=== PATIENT | female | born 1990 | race Caucasian/White ===

== ENCOUNTER → 2017-08-28 11:24 | Outpatient (POV) | payer BC, SELFPAY ==
[2017-08-28 11:35] VITALS: BP 143/75; PULSE 91; RESP 18; TEMP 36.6; O2SAT 97; BMI 32.2
--- NOTE | 2017-08-28 12:33 | HMH.PAINSOAP ---
[facility] Pain Management SOAP Note Subjective:: Patient is a pleasant 27-year-old white female who presents today for follow-up. Patient had spinal cord stimulator implanted by Dr. Ramirez. She states that the majority of her back and bilateral leg pain has resolved. She is still having some left SI issues. Patient has had injections in the past with little relief. Patient is currently not on any medications. Patient has never tried gabapentin. Patient rates her pain a 6 out of 10 today. Patient is still working full-time. Patient states sitting makes it better while standing and moving makes it worse. ROS General: no recent weight change, no fever, no sleep disturbances Respiratory: no cough, no shortness of air, no recurring pulmonary infections Cardiovascular/Peripheral Vascular: No chest pain, No palpitations, no edema, no shortness of breath. Gastrointestinal: no incontinence, normal bowel movements reported Genitourinary: no incontinence Musculoskeletal: Left SI pain Psychiatric: normal mood/ affect, Neurological: [denies weakness in extremities], [denies balance issues] Objective:: Physical Exam General: Alert and oriented x3, no acute distress, pleasant and cooperative, [on room air] Lungs: Resps E/U, Symmetrical chest expansion, Eyes: PERRL Musculoskeletal: Flexion and extension of lumbar spine somewhat guarded secondary to pain, deep tendon reflexes normal, strength in upper and lower extremities [5/5], antalgic gait noted, positive Alex's test on the left side, extreme point tenderness over left SI Neurological: speech clear, wool shearer equal, no gross sensory deficits Assessment:: Left sacroiliitis, degenerative disc disease of lumbar spine with lumbar radiculopathy symptoms Plan:: We will call in this patient a Medrol Dosepak along with gabapentin 100 mg 1 p.o. 3 times daily. I will follow-up with this patient in 1 month. I discussed with her the possible side effects of the medication and she understands. Patient is going to titrate up her gabapentin slowly. I will see how she does on her return. This note was dictated using voice recognition software and may contain errors or omissions
--- NOTE | 2017-08-28 12:36 | P.CONS_ITS ---
[facility] Pain Management SOAP Note Subjective:: Patient is a pleasant 27-year-old white female who presents today for follow- up. Patient had spinal cord stimulator implanted by Dr. Ramirez. She states that the majority of her back and bilateral leg pain has resolved. She is still having some left SI issues. Patient has had injections in the past with little relief. Patient is currently not on any medications. Patient has never tried gabapentin. Patient rates her pain a 6 out of 10 today. Patient is still working full-time. Patient states sitting makes it better while standing and moving makes it worse. ROS General: no recent weight change, no fever, no sleep disturbances Respiratory: no cough, no shortness of air, no recurring pulmonary infections Cardiovascular/Peripheral Vascular: No chest pain, No palpitations, no edema, no shortness of breath. Gastrointestinal: no incontinence, normal bowel movements reported Genitourinary: no incontinence Musculoskeletal: Left SI pain Psychiatric: normal mood/ affect, Neurological: [denies weakness in extremities], [denies balance issues] Objective:: Physical Exam General: Alert and oriented x3, no acute distress, pleasant and cooperative, [ on room air] Lungs: Resps E/U, Symmetrical chest expansion, Eyes: PERRL Musculoskeletal: Flexion and extension of lumbar spine somewhat guarded secondary to pain, deep tendon reflexes normal, strength in upper and lower extremities [5/5], antalgic gait noted, positive Alex's test on the left side, extreme point tenderness over left SI Neurological: speech clear, veterans' coordinator equal, no gross sensory deficits Assessment:: Left sacroiliitis, degenerative disc disease of lumbar spine with lumbar radiculopathy symptoms Plan:: We will call in this patient a Medrol Dosepak along with gabapentin 100 mg 1 p.o. 3 times daily. I will follow-up with this patient in 1 month. I discussed with her the possible side effects of the medication and she understands. Patient is going to titrate up her gabapentin slowly. I will see how she does on her return. This note was dictated using voice recognition software and may contain errors or omissions
== END ==
PROVIDERS: Family Provider Family Medicine; PCP Family Medicine; Visit Provider Clinical Nurse Specialist Family Health
DX: M46.1 Sacroiliitis, not elsewhere classified (principal)
CPT/HCPCS: 99212

== ENCOUNTER → 2017-09-25 09:14 | Outpatient (POV) | payer BC, SELFPAY ==
[2017-09-25 09:39] VITALS: BP 128/89; PULSE 82; RESP 18; TEMP 36.7; O2SAT 99; BMI 30.4
--- NOTE | 2017-09-25 09:52 | HMH.PAINSOAP ---
[facility] Pain Management SOAP Note Subjective:: Patient is a pleasant 27-year-old white female who presents today for follow-up. Patient had spinal cord stimulator implanted by Dr. Ramirez. After surgery however the implant did migrate. Patient is not getting good coverage or pain relief. Patient's majority of her pain is in her back and bilateral legs. Patient is having SI issues bilaterally. Patient has had injections in the past with little relief. Patient is currently on gabapentin 100 mg at bedtime. She denies any side effects other than some drowsiness. Patient is still working full-time. Patient rates her pain as 7 out of 10 today. ROS General: no recent weight change, no fever, no sleep disturbances Respiratory: no cough, no shortness of air, no recurring pulmonary infections Cardiovascular/Peripheral Vascular: No chest pain, No palpitations, no edema, no shortness of breath. Gastrointestinal: no incontinence, normal bowel movements reported Genitourinary: no incontinence Musculoskeletal: Back pain, bilateral leg pain, bilateral SI joint pain Psychiatric: normal mood/ affect Neurological: [denies weakness in extremities], [denies balance issues] Objective:: Physical Exam General: Alert and oriented x3, no acute distress, pleasant and cooperative, [on room air] Lungs: Resps E/U, Symmetrical chest expansion, Eyes: PERRL Musculoskeletal: Flexion and extension of lumbar spine somewhat guarded secondary to pain, deep tendon reflexes normal, strength in upper and lower extremities [5/5], and gait noted, positive Alex's test bilaterally, extreme point tenderness over bilateral SI joints Neurological: speech clear, second hand paper machine equal, no gross sensory deficits Assessment:: Bilateral sacroiliitis, degenerative disc disease of lumbar spine with lumbar radiculopathy symptoms Plan:: We will plan a bilateral SI joint injection for the patient. We will call in ibuprofen 8 mg 1 p.o. 3 times daily. We will also get the patient's imaging from [facility] and referred the patient to Dr. Barlow for second opinion about a possible revision of her paddle lead. This note was dictated using voice recognition software and may contain errors or omissions
--- NOTE | 2017-09-25 09:55 | P.CONS_ITS ---
[facility] Pain Management SOAP Note Subjective:: Patient is a pleasant 27-year-old white female who presents today for follow- up. Patient had spinal cord stimulator implanted by Dr. Ramirez. After surgery however the implant did migrate. Patient is not getting good coverage or pain relief. Patient's majority of her pain is in her back and bilateral legs. Patient is having SI issues bilaterally. Patient has had injections in the past with little relief. Patient is currently on gabapentin 100 mg at bedtime. She denies any side effects other than some drowsiness. Patient is still working full-time. Patient rates her pain as 7 out of 10 today. ROS General: no recent weight change, no fever, no sleep disturbances Respiratory: no cough, no shortness of air, no recurring pulmonary infections Cardiovascular/Peripheral Vascular: No chest pain, No palpitations, no edema, no shortness of breath. Gastrointestinal: no incontinence, normal bowel movements reported Genitourinary: no incontinence Musculoskeletal: Back pain, bilateral leg pain, bilateral SI joint pain Psychiatric: normal mood/ affect Neurological: [denies weakness in extremities], [denies balance issues] Objective:: Physical Exam General: Alert and oriented x3, no acute distress, pleasant and cooperative, [ on room air] Lungs: Resps E/U, Symmetrical chest expansion, Eyes: PERRL Musculoskeletal: Flexion and extension of lumbar spine somewhat guarded secondary to pain, deep tendon reflexes normal, strength in upper and lower extremities [5/5], and gait noted, positive Alex's test bilaterally, extreme point tenderness over bilateral SI joints Neurological: speech clear, pediatric rn equal, no gross sensory deficits Assessment:: Bilateral sacroiliitis, degenerative disc disease of lumbar spine with lumbar radiculopathy symptoms Plan:: We will plan a bilateral SI joint injection for the patient. We will call in ibuprofen 8 mg 1 p.o. 3 times daily. We will also get the patient's imaging from [facility] and referred the patient to Dr. Barlow for second opinion about a possible revision of her paddle lead. This note was dictated using voice recognition software and may contain errors or omissions
--- NOTE | 2017-09-25 14:07 | PC.PHONENOTE ---
called in rx for Motrin 800mg TID with 2 refills
== END ==
PROVIDERS: Family Provider Family Medicine; PCP Family Medicine; Visit Provider Clinical Nurse Specialist Family Health
DX: M46.1 Sacroiliitis, not elsewhere classified (principal); M54.16 Radiculopathy, lumbar region
CPT/HCPCS: 99212

== ENCOUNTER → 2018-02-04 09:59 | Outpatient (POV) | payer BC, SELFPAY ==
[2018-02-04 10:10] VITALS: BP 134/76; PULSE 72; RESP 18; O2SAT 100; BMI 33.1
--- NOTE | 2018-02-04 11:01 | HMH.PAINSOAP ---
[facility] Pain Management SOAP Note Subjective:: Patient is a pleasant 27-year-old white female who we are treating for back and leg pain. Patient had a revision of her spinal cord stimulator and is doing extremely well with this. Patient states she is having some low back pain. Patient does have a disc bulge at L4-L5. We will try lumbar epidural steroid injection to see if this is beneficial for her. She rates her pain today a 6 out of 10. ROS General: no recent weight change, no fever, no sleep disturbances Respiratory: no cough, no shortness of air, no recurring pulmonary infections Cardiovascular/Peripheral Vascular: No chest pain, No palpitations, no edema, no shortness of breath. Gastrointestinal: no incontinence, normal bowel movements reported Genitourinary: no incontinence Musculoskeletal: Back pain Psychiatric: normal mood/ affect Neurological: [denies weakness in extremities], [denies balance issues] Objective:: Physical Exam General: Alert and oriented x3, no acute distress, pleasant and cooperative, [on room air] Lungs: Resps E/U, Symmetrical chest expansion, Eyes: PERRL Musculoskeletal: Flexion and extension of lumbar spine somewhat guarded secondary to pain, deep tendon reflexes normal, strength in upper and lower extremities [5/5], slightly antalgic gait noted Neurological: speech clear, managed care provider equal, no gross sensory deficits Assessment:: Degenerative disc disease of lumbar spine with lumbar radiculopathy Plan:: We will schedule an L4-L5 lumbar epidural steroid injection for the patient. She is not on any anticoagulation therapy. If this does not bring her any relief we will get a CT scan of her lower back and send her for consultation to Dr. Barlow. This note was dictated using voice recognition software and may contain errors or omissions
--- NOTE | 2018-02-04 11:04 | P.CONS_ITS ---
[facility] Pain Management SOAP Note Subjective:: Patient is a pleasant 27-year-old white female who we are treating for back and leg pain. Patient had a revision of her spinal cord stimulator and is doing extremely well with this. Patient states she is having some low back pain. Patient does have a disc bulge at L4-L5. We will try lumbar epidural steroid injection to see if this is beneficial for her. She rates her pain today a 6 out of 10. ROS General: no recent weight change, no fever, no sleep disturbances Respiratory: no cough, no shortness of air, no recurring pulmonary infections Cardiovascular/Peripheral Vascular: No chest pain, No palpitations, no edema, no shortness of breath. Gastrointestinal: no incontinence, normal bowel movements reported Genitourinary: no incontinence Musculoskeletal: Back pain Psychiatric: normal mood/ affect Neurological: [denies weakness in extremities], [denies balance issues] Objective:: Physical Exam General: Alert and oriented x3, no acute distress, pleasant and cooperative, [on room air] Lungs: Resps E/U, Symmetrical chest expansion, Eyes: PERRL Musculoskeletal: Flexion and extension of lumbar spine somewhat guarded secondary to pain, deep tendon reflexes normal, strength in upper and lower extremities [5/5], slightly antalgic gait noted Neurological: speech clear, sprayer hand equal, no gross sensory deficits Assessment:: Degenerative disc disease of lumbar spine with lumbar radiculopathy Plan:: We will schedule an L4-L5 lumbar epidural steroid injection for the patient. She is not on any anticoagulation therapy. If this does not bring her any relief we will get a CT scan of her lower back and send her for consultation to Dr. Barlow. This note was dictated using voice recognition software and may contain errors or omissions
== END ==
PROVIDERS: Family Provider Family Medicine; PCP Family Medicine; Visit Provider Clinical Nurse Specialist Family Health
DX: M51.16 Intervertebral disc disorders with radiculopathy, lumbar region (principal)
CPT/HCPCS: 99213

== ENCOUNTER → 2018-03-19 09:12 | Outpatient (POV) | payer BC, SELFPAY ==
[2018-03-19 09:27] VITALS: BP 158/82; PULSE 74; RESP 18; O2SAT 98; BMI 31.8
--- NOTE | 2018-03-19 12:29 | P.CONS_ITS ---
[facility] Pain Management SOAP Note Subjective:: Patient is a pleasant 27-year-old white female who presents today after lumbar epidural steroid injection. Patient denies any relief from her injection. Patient states most of her pain is when she standing and walking. Patient states she is noted that she cannot walk for long periods of time without bending forward. Patient does have a neurostimulator which takes care of most of her back and leg pain however she is having much more difficulty with walking around. Patient rates her pain a 5 out of 10 today. Patient has not had any updated imaging recently. ROS General: no recent weight change, no fever, no sleep disturbances Respiratory: no cough, no shortness of air, no recurring pulmonary infections Cardiovascular/Peripheral Vascular: No chest pain, No palpitations, no edema, no shortness of breath. Gastrointestinal: no incontinence, normal bowel movements reported Genitourinary: no incontinence Musculoskeletal: Back pain when walking Psychiatric: normal mood/ affect Neurological: [denies weakness in extremities], [denies balance issues] Objective:: Physical Exam General: Alert and oriented x3, no acute distress, pleasant and cooperative, [on room air] Lungs: Resps E/U, Symmetrical chest expansion, Eyes: PERRL Musculoskeletal: Flexion and extension of lumbar spine somewhat guarded secondary to pain, deep tendon reflexes normal, strength in upper and lower extremities [5/5], slightly antalgic gait noted Neurological: speech clear, product inspection coordinator equal, no gross sensory deficits Assessment:: Degenerative disc disease of the lumbar spine with lumbar radiculopathy Plan:: We will send the patient for a CT scan to determine if she has spinal stenosis. Patient may be a vertiflex candidate. I will follow-up with her after her imaging. This note was dictated using voice recognition software and may contain errors or omissions
== END ==
PROVIDERS: PCP Family Medicine; Visit Provider Clinical Nurse Specialist Family Health
DX: M51.16 Intervertebral disc disorders with radiculopathy, lumbar region (principal)
CPT/HCPCS: 99213

== ENCOUNTER → 2018-04-15 15:02 | Outpatient (POV) | payer BC, SELFPAY ==
--- NOTE | 2018-04-15 15:25 | HMH.PAINSOAP ---
[facility] Pain Management SOAP Note Subjective:: Is a 27-year-old white female who presents today for follow-up. Patient had a CT that shows articular facet disease. Patient rates her pain a 7 out of 10 today. Patient states that her pain is when she stands for long periods of time. Patient states that she has to bend forward when she is walking. Patient does have a neurostimulator which takes care of most of her back pain however she is having much more difficulty with walking around. Patient may be a potential refer to flex procedure candidate. Patient has tried and failed facet joint injections, epidural injections, SI joint injections, neurostimulator reprogramming. ROS General: no recent weight change, no fever, no sleep disturbances Respiratory: no cough, no shortness of air, no recurring pulmonary infections Cardiovascular/Peripheral Vascular: No chest pain, No palpitations, no edema, no shortness of breath. Gastrointestinal: no incontinence, normal bowel movements reported Genitourinary: no incontinence Musculoskeletal: Back pain when walking Psychiatric: normal mood/ affect Neurological: [denies weakness in extremities], [denies balance issues] Objective:: Physical Exam General: Alert and oriented x3, no acute distress, pleasant and cooperative, [on room air] Lungs: Resps E/U, Symmetrical chest expansion, Eyes: PERRL Musculoskeletal: Flexion and extension of lumbar spine somewhat guarded secondary to pain, deep tendon reflexes normal, strength in upper and lower extremities [5/5], normal gait noted Neurological: speech clear, scale and skip car operator equal, no gross sensory deficits Assessment:: Degenerative disc disease lumbar spine with lumbar spondylosis, lumbar radiculopathy Plan:: I will have Dr. Liu review her disc of her CT to determine if she is a candidate for vertical flex. Patient has tried and failed other modalities of treatment including epidurals, facet joint injections, SI joint injections. We will started on Wellbutrin 150 mg daily. I will follow-up with her in 1 month. This note was dictated using voice recognition software and may contain errors or omissions
[2018-04-15 15:27] VITALS: BP 109/75; PULSE 76; RESP 18; O2SAT 98; BMI 36.3
--- NOTE | 2018-04-15 15:30 | P.CONS_ITS ---
[facility] Pain Management SOAP Note Subjective:: Is a 27-year-old white female who presents today for follow-up. Patient had a CT that shows articular facet disease. Patient rates her pain a 7 out of 10 today. Patient states that her pain is when she stands for long periods of time. Patient states that she has to bend forward when she is walking. Patient does have a neurostimulator which takes care of most of her back pain however she is having much more difficulty with walking around. Patient may be a potential refer to flex procedure candidate. Patient has tried and failed facet joint injections, epidural injections, SI joint injections, neurostimulator reprogramming. ROS General: no recent weight change, no fever, no sleep disturbances Respiratory: no cough, no shortness of air, no recurring pulmonary infections Cardiovascular/Peripheral Vascular: No chest pain, No palpitations, no edema, no shortness of breath. Gastrointestinal: no incontinence, normal bowel movements reported Genitourinary: no incontinence Musculoskeletal: Back pain when walking Psychiatric: normal mood/ affect Neurological: [denies weakness in extremities], [denies balance issues] Objective:: Physical Exam General: Alert and oriented x3, no acute distress, pleasant and cooperative, [on room air] Lungs: Resps E/U, Symmetrical chest expansion, Eyes: PERRL Musculoskeletal: Flexion and extension of lumbar spine somewhat guarded secondary to pain, deep tendon reflexes normal, strength in upper and lower extr emities [5/5], normal gait noted Neurological: speech clear, insurance business analyst equal, no gross sensory deficits Assessment:: Degenerative disc disease lumbar spine with lumbar spondylosis, lumbar radiculopathy Plan:: I will have Dr. Liu review her disc of her CT to determine if she is a candidate for vertical flex. Patient has tried and failed other modalities of treatment including epidurals, facet joint injections, SI joint injections. We will started on Wellbutrin 150 mg daily. I will follow-up with her in 1 month. This note was dictated using voice recognition software and may contain errors or omissions
== END ==
PROVIDERS: PCP Family Medicine; Visit Provider Clinical Nurse Specialist Family Health
DX: M51.16 Intervertebral disc disorders with radiculopathy, lumbar region (principal); M47.896 Other spondylosis, lumbar region
CPT/HCPCS: 99213

== ENCOUNTER → 2018-05-07 10:53 | Outpatient (POV) | payer BC, SELFPAY ==
--- NOTE | 2018-05-07 11:03 | XR_ITS ---
XR lumbar spine bending only Ordering Physician: Nicolle Jean Patient Age: 27 years: Female HISTORY: ITS.REASON: F/U WITH PAIN MANAGEMENT TECHNIQUE: 2 lateral views : in flexion and extension COMPARISON :CT lumbar 04/09/2018. FINDINGS Lateral flexion and extension views lumbar spine demonstrate mild to moderate movement between flexion & extension. .. Mild flexion observed on this single lateral flexion image, with mild range of movement with extension... A previous CT lumbar spine sagittal safety supervisor view series is neutral comparison The spinal stimulator device overlying the lower back with lead extending stability on image IMPRESSION: . Lumbar Vertebral bodies appear intact... Disc spaces fairly well maintained. There mild to moderate flexion-extension mobility demonstrated. ... Does appear to be Diminished range of motion lumbar spine for 27-year-old
[2018-05-07 11:36] VITALS: BP 146/78; PULSE 82; RESP 18; O2SAT 98; BMI 33.6
--- NOTE | 2018-05-07 12:11 | HMH.PAINSOAP ---
[facility] Pain Management SOAP Note Subjective:: Patient is a pleasant 27-year-old white female who presents today for discussion in regards to a vertiflex procedure. Patient stimulator has been taking care of her leg pain however her biggest issue is when she is standing and walking. Patient's pain is relieved when she leans forward. Patient has tried and failed medications and anti-inflammatories. I did start her on Wellbutrin 150 mg/day and she states that this does help her rest at night. She rates her pain 6 out of 10. She has completed physical therapy and is continuing a home stretching program. Patient's tried and failed anti-inflammatory medications. ROS General: no recent weight change, no fever, no sleep disturbances Respiratory: no cough, no shortness of air, no recurring pulmonary infections Cardiovascular/Peripheral Vascular: No chest pain, No palpitations, no edema, no shortness of breath. Gastrointestinal: no incontinence, normal bowel movements reported Genitourinary: no incontinence Musculoskeletal: Back pain, leg pain when standing Psychiatric: normal mood/ affect Neurological: [denies weakness in extremities], [denies balance issues] Objective:: Physical Exam General: Alert and oriented x3, no acute distress, pleasant and cooperative, [on room air] Lungs: Resps E/U, Symmetrical chest expansion, Eyes: PERRL Musculoskeletal: Flexion and extension of lumbar spine somewhat guarded secondary to pain, deep tendon reflexes normal, strength in upper and lower extremities [5/5], slightly antalgic gait noted Neurological: speech clear, concrete foreman equal, no gross sensory deficits Assessment:: Spinal stenosis, neurogenic claudication, degenerative disc disease lumbar spine Plan:: We will move forward with a vertiflex procedure at L3-L4. We will secure flexion and extension x-rays to ensure this can be done. I believe given her age this will be much more beneficial than a surgical procedure. I believe it will help with her functionality. This note was dictated using voice recognition software and may contain errors or omissions
--- NOTE | 2018-05-07 12:15 | P.CONS_ITS ---
[facility] Pain Management SOAP Note Subjective:: Patient is a pleasant 27-year-old white female who presents today for discussion in regards to a vertiflex procedure. Patient stimulator has been taking care of her leg pain however her biggest issue is when she is standing and walking. Patient's pain is relieved when she leans forward. Patient has tried and failed medications and anti-inflammatories. I did start her on Wellbutrin 150 mg/day and she states that this does help her rest at night. She rates her pain 6 out of 10. She has completed physical therapy and is continuing a home stretching program. Patient's tried and failed anti-inflammatory medications. ROS General: no recent weight change, no fever, no sleep disturbances Respiratory: no cough, no shortness of air, no recurring pulmonary infections Cardiovascular/Peripheral Vascular: No chest pain, No palpitations, no edema, no shortness of breath. Gastrointestinal: no incontinence, normal bowel movements reported Genitourinary: no incontinence Musculoskeletal: Back pain, leg pain when standing Psychiatric: normal mood/ affect Neurological: [denies weakness in extremities], [denies balance issues] Objective:: Physical Exam General: Alert and oriented x3, no acute distress, pleasant and cooperative, [on room air] Lungs: Resps E/U, Symmetrical chest expansion, Eyes: PERRL Musculoskeletal: Flexion and extension of lumbar spine somewhat guarded secondary to pain, deep tendon reflexes normal, strength in upper and lower extr emities [5/5], slightly antalgic gait noted Neurological: speech clear, title supervisor equal, no gross sensory deficits Assessment:: Spinal stenosis, neurogenic claudication, degenerative disc disease lumbar spine Plan:: We will move forward with a vertiflex procedure at L3-L4. We will secure flexion and extension x-rays to ensure this can be done. I believe given her age this will be much more beneficial than a surgical procedure. I believe it will help with her functionality. This note was dictated using voice recognition software and may contain errors or omissions
== END ==
PROVIDERS: PCP Family Medicine; Visit Provider Clinical Nurse Specialist Family Health
DX: M48.062 Spinal stenosis, lumbar region with neurogenic claudication (principal); M51.36 Other intervertebral disc degeneration, lumbar region
CPT/HCPCS: 72120; 99213

== ENCOUNTER → 2018-07-16 09:27 | Outpatient (POV) | payer BC, SELFPAY ==
[2018-07-16 10:06] VITALS: BP 144/92; PULSE 79; RESP 18; O2SAT 98; BMI 31.8
--- NOTE | 2018-07-16 10:21 | HMH.PAINSOAP ---
[facility] Pain Management SOAP Note Subjective:: Patient is a pleasant was 28-year-old white female who presents today for follow-up after vertiflex. Patient is slightly sore at the surgical site. Patient has had stitches removed. Patient site looks clean dry and he will no sign symptoms of infection. Patient is having some swelling. And increased pain We will put her on some anti-inflammatories and follow-up with her in 1 week. Rates her pain a 6 out of 10 ROS General: no recent weight change, no fever, no sleep disturbances Respiratory: no cough, no shortness of air, no recurring pulmonary infections Cardiovascular/Peripheral Vascular: No chest pain, No palpitations, no edema, no shortness of breath. Gastrointestinal: no incontinence, normal bowel movements reported Genitourinary: no incontinence Musculoskeletal: Back pain Psychiatric: normal mood/ affect Neurological: [denies weakness in extremities], [denies balance issues] Objective:: Physical Exam General: Alert and oriented x3, no acute distress, pleasant and cooperative, [on room air] Lungs: Resps E/U, Symmetrical chest expansion, Eyes: PERRL Musculoskeletal: Flexion and extension of lumbar spine somewhat guarded secondary to pain, deep tendon reflexes normal, strength in upper and lower extremities [5/5], [abnormal gait noted] Neurological: speech clear, cage maker machine equal, no gross sensory deficits Assessment:: Degenerative disc disease lumbar spine with neurogenic claudication and spinal stenosis Plan:: See the patient back in 1 week and reassess her symptoms at that time. She has been instructed to call the office if she has any prior to her next appointment. Dr. Liu has reviewed this note and agrees with this plan of care. This note was dictated using voice recognition software and may contain errors or omissions
--- NOTE | 2018-07-16 10:24 | P.CONS_ITS ---
[facility] Pain Management SOAP Note Subjective:: Patient is a pleasant was 28-year-old white female who presents today for follow-up after vertiflex. Patient is slightly sore at the surgical site. Patient has had stitches removed. Patient site looks clean dry and he will no sign symptoms of infection. Patient is having some swelling. And increased pain We will put her on some anti-inflammatories and follow-up with her in 1 week. Rates her pain a 6 out of 10 ROS General: no recent weight change, no fever, no sleep disturbances Respiratory: no cough, no shortness of air, no recurring pulmonary infections Cardiovascular/Peripheral Vascular: No chest pain, No palpitations, no edema, no shortness of breath. Gastrointestinal: no incontinence, normal bowel movements reported Genitourinary: no incontinence Musculoskeletal: Back pain Psychiatric: normal mood/ affect Neurological: [denies weakness in extremities], [denies balance issues] Objective:: Physical Exam General: Alert and oriented x3, no acute distress, pleasant and cooperative, [on room air] Lungs: Resps E/U, Symmetrical chest expansion, Eyes: PERRL Musculoskeletal: Flexion and extension of lumbar spine somewhat guarded secondary to pain, deep tendon reflexes normal, strength in upper and lower extremities [5/5], [abnormal gait noted] Neurological: speech clear, electrode cleaner equal, no gross sensory deficits Assessment:: Degenerative disc disease lumbar spine with neurogenic claudication and spinal stenosis Plan:: See the patient back in 1 week and reassess her symptoms at that time. She has been instructed to call the office if she has any prior to her next appointment. Dr. Liu has reviewed this note and agrees with this plan of care. This note was dictated using voice recognition software and may contain errors or omissions
== END ==
PROVIDERS: PCP Family Medicine; Visit Provider Clinical Nurse Specialist Family Health
DX: M48.062 Spinal stenosis, lumbar region with neurogenic claudication (principal)
CPT/HCPCS: 99213

== ENCOUNTER → 2018-07-22 09:24 | Outpatient (POV) | payer BC, SELFPAY ==
[2018-07-22 09:44] VITALS: BP 133/98; PULSE 81; RESP 18; O2SAT 98; BMI 31.8
--- NOTE | 2018-07-22 09:55 | P.CONS_ITS ---
[facility] Pain Management SOAP Note Subjective:: She is a pleasant 28-year-old white female who presents today for follow-up. Patient is doing fairly well rating her pain a 4 out of 10. Patient site has healed completely with no sign symptoms of infection. Patient overall doing well she states that she can stand up straighter at this time. She states that she does have some weakness in her bilateral legs. ROS General: no recent weight change, no fever, no sleep disturbances Respiratory: no cough, no shortness of air, no recurring pulmonary infections Cardiovascular/Peripheral Vascular: No chest pain, No palpitations, no edema, no shortness of breath. Gastrointestinal: no incontinence, normal bowel movements reported Genitourinary: no incontinence Musculoskeletal: Back pain, leg pain Psychiatric: normal mood/ affect Neurological: Bilateral lower extremity weakness, [denies balance issues] Objective:: Physical Exam General: Alert and oriented x3, no acute distress, pleasant and cooperative, [on room air] Lungs: Resps E/U, Symmetrical chest expansion, Eyes: PERRL Musculoskeletal: Flexion and extension of lumbar spine somewhat guarded secondary to pain, deep tendon reflexes normal, strength in upper and lower extremities [5/5], antalgic gait noted Neurological: speech clear, special loan officer equal, no gross sensory deficits Assessment:: Degenerative disc disease lumbar spine with neurogenic claudication and spinal stenosis Plan:: We will send the patient to physical therapy to help with strengthening of her lower extremities. I will follow-up with her after this and reassess her symptoms at that time. She is been instructed to call the office if she has any issues prior to her next appointment. Dr. Liu has reviewed this note and agrees with this plan of care. This note was dictated using voice recognition software and may contain errors or omissions
== END ==
PROVIDERS: PCP Family Medicine; Visit Provider Clinical Nurse Specialist Family Health
DX: M48.062 Spinal stenosis, lumbar region with neurogenic claudication (principal)
CPT/HCPCS: 99213

== ENCOUNTER → 2018-09-10 13:24 | Outpatient (POV) | payer BC, SELFPAY ==
[2018-09-10 13:55] VITALS: BP 131/74; PULSE 83; RESP 18; O2SAT 98; BMI 32.0
--- NOTE | 2018-09-10 15:58 | P.CONS_ITS ---
[facility] Pain Management SOAP Note Subjective:: Patient is a very pleasant 28-year-old white female who presents today for follow-up. She is doing well rating her pain a 4 out of 10. She is completing her physical therapy and doing quite well with this as well. She does have a neurostimulator along with a vertiflex. Patient states she is having some weakness in her bilateral legs. She states the numbness in her legs are gone. ROS General: no recent weight change, no fever, no sleep disturbances Respiratory: no cough, no shortness of air, no recurring pulmonary infections Cardiovascular/Peripheral Vascular: No chest pain, No palpitations, no edema, no shortness of breath. Gastrointestinal: no incontinence, normal bowel movements reported Genitourinary: no incontinence Musculoskeletal: Back pain, leg pain Psychiatric: normal mood/ affect Neurological: Weakness in bilateral lower extremities at times, [denies balance issues] Objective:: Physical Exam General: Alert and oriented x3, no acute distress, pleasant and cooperative, [on room air] Lungs: Resps E/U, Symmetrical chest expansion, Eyes: PERRL Musculoskeletal: Flexion and extension of lumbar spine somewhat guarded secondary to pain, deep tendon reflexes normal, strength in upper and lower extremities [5/5], [abnormal gait noted] Neurological: speech clear, director of infection prevention equal, no gross sensory deficits Assessment:: Degenerative disc disease lumbar spine with neurogenic claudication and spinal stenosis Plan:: I believe it would be beneficial to continue physical therapy for the patient also to get a nerve conduction study of her bilateral lower legs for further assessment of her weakness. Dr. Liu has reviewed this note and agrees with this plan of care. This note was dictated using voice recognition software and may contain errors or omissions
== END ==
PROVIDERS: PCP Family Medicine; Visit Provider Clinical Nurse Specialist Family Health
DX: M48.062 Spinal stenosis, lumbar region with neurogenic claudication (principal)
CPT/HCPCS: 99212

== ENCOUNTER → 2018-09-30 13:22 | Outpatient (POV) | payer BC, SELFPAY | PROVIDERS: Visit Provider Specialist | DX: M79.604 Pain in right leg (principal); M79.605 Pain in left leg | CPT/HCPCS: 95886; 95908 ==

== ENCOUNTER → 2018-11-04 10:53 | Outpatient (POV) | payer BC, SELFPAY ==
[2018-11-04 11:17] VITALS: BP 143/99; PULSE 99; RESP 18; O2SAT 98; BMI 31.4
--- NOTE | 2018-11-05 08:26 | HMH.PAINSOAP ---
[facility] Pain Management SOAP Note Subjective:: Patient is a pleasant 28-year-old white female who presents today for follow-up. Patient has avert a flex along with a neurostimulator. She rates her pain a 5 out of 10 today. Patient overall doing well but she has had some recent changes in her numbness and tingling. She is concerned about this. She is continuing physical therapy and a home stretching program. This is not been beneficial for her. Most of her pain is in her bilateral legs at this time. Patient and I discussed reprogramming and getting some new imaging. ROS General: no recent weight change, no fever, no sleep disturbances Respiratory: no cough, no shortness of air, no recurring pulmonary infections Cardiovascular/Peripheral Vascular: No chest pain, No palpitations, no edema, no shortness of breath. Gastrointestinal: no incontinence, normal bowel movements reported Genitourinary: no incontinence Musculoskeletal: Back pain, leg pain Psychiatric: normal mood/ affect, Neurological: [denies weakness in extremities], [denies balance issues] Objective:: Physical Exam General: Alert and oriented x3, no acute distress, pleasant and cooperative, [on room air] Lungs: Resps E/U, Symmetrical chest expansion, Eyes: PERRL Musculoskeletal: Flexion and extension of lumbar spine somewhat guarded secondary to pain, deep tendon reflexes normal, strength in upper and lower extremities [5/5], antalgic gait noted Neurological: speech clear, application support lead equal, no gross sensory deficits Assessment:: Degenerative disc disease lumbar spine with lumbar radiculopathy along with spinal stenosis neurogenic claudication Plan:: We will order a CT for the patient. To determine any new pathology. Patient is going to contact her office after her CT is completed we will review it and see if she is potentially a surgical candidate or needs a surgical consultation. Dr. Liu has reviewed this note and agrees with this plan of care. This note was dictated using voice recognition software and may contain errors or omissions
== END ==
PROVIDERS: Visit Provider Clinical Nurse Specialist Family Health
DX: M48.062 Spinal stenosis, lumbar region with neurogenic claudication (principal)
CPT/HCPCS: 99212

== ENCOUNTER → 2018-11-25 09:35 | Outpatient (POV) | payer BC, SELFPAY ==
[2018-11-25 10:03] VITALS: BP 140/89; PULSE 74; RESP 18; O2SAT 98; BMI 32.0
--- NOTE | 2018-11-25 10:59 | P.CONS_ITS ---
[facility] Pain Management SOAP Note Subjective:: Patient is a pleasant 28-year-old white female who presents today for follow-up. Patient is still having quite a bit of pain rating her pain a 7 out of 10 radiating into her back moving up her spine and down her spine. Patient had a CT scan that was essentially unremarkable. Patient and I had a long discussion in regards to her current state of health. She is having a lot of issues with her stomach along with swelling. Patient is obviously swollen on exam today. Patient has not seen her primary care recently. Patient is continuing physical therapy and a home stretching program. But it is not as beneficial as it had been. Most of her pain is in her legs. ROS General: Recent weight change, no fever, difficulty sleeping difficulty eating Respiratory: no cough, shortness of air on exertion, no recurring pulmonary infections Cardiovascular/Peripheral Vascular: No chest pain, No palpitations,edema bilateral legs, Gastrointestinal: no incontinence Genitourinary: no incontinence Musculoskeletal: Back pain, leg pain Psychiatric: normal mood/ affect, [denies depression], [denies anxiety] Neurological: [denies weakness in extremities], [denies balance issues] Objective:: Physical Exam General: Alert and oriented x3, no acute distress, pleasant and cooperative, [on room air] Lungs: Resps E/U, Symmetrical chest expansion, Eyes: PERRL Skin: 2+ edema bilateral legs Musculoskeletal: Flexion and extension of her spine somewhat guarded secondary to pain, deep tendon reflexes normal, strength in upper and lower extremities [5/5], [abnormal gait noted] Neurological: speech clear, clerical administrative assistant equal, no gross sensory deficits Assessment:: Degenerative disc disease lumbar spine with lumbar radiculopathy spinal stenosis neurogenic claudication Plan:: We will have her go to be seen by her family care doctor to discuss potential HIDA scan, sed rate, blood work, and any vascular test that may be appropriate. We will also set her up for biofeedback therapy with Dr. Webb. I will see her back in 1 week and reassess her symptoms at that time she is been instructed to call the office if she has any issues prior to her next appointment. Dr. Liu has reviewed this note and agrees with this plan of care. This note was dictated using voice recognition software and may contain errors or omissions
== END ==
PROVIDERS: Visit Provider Clinical Nurse Specialist Family Health
DX: M48.062 Spinal stenosis, lumbar region with neurogenic claudication (principal); M51.16 Intervertebral disc disorders with radiculopathy, lumbar region
CPT/HCPCS: 99212

== ENCOUNTER → 2018-12-02 09:00 | Outpatient (POV) | payer BC, SELFPAY ==
[2018-12-02 09:13] VITALS: BP 134/79; PULSE 68; RESP 18; O2SAT 98; BMI 33.3
--- NOTE | 2018-12-02 09:28 | HMH.PAINSOAP ---
[facility] Pain Management SOAP Note Subjective:: Patient is a pleasant 28-year-old white female who presents today for follow-up. Patient is having mid epigastric pain radiating to her right flank area. She says she has been having this pain for a couple of months. She also had some swelling to her abdomen and lower extremities. At last visit she was encouraged to follow-up with her primary care physician to discuss possible testing. Patient says that she did, indeed, follow-up with her primary care provider who did do testing that revealed elevated enzymes , according to the patient. Patient is still having midepigastric pain and says that it worsens with eating. Per patient, her PCP told her it is heartburn, take the medicine and deal with it . She says that the midepigastric pain is now causing her to have upper back pain. She would like to determine what is causing her midepigastric pain before addressing her back pain. Review of Systems General: No recent weight changes, no fever, no sleep disturbances Respiratory: No cough, no shortness of air, no recurring pulmonary infections Cardiovascular/peripheral vascular: No chest pain, no palpitations, no edema, no shortness of breath Gastrointestinal: No new onset incontinence, normal bowel movements reported Genitourinary: No new onset incontinence Musculoskeletal: Back pain Psychiatric: Normal mood/affect Neurological: [Denies weakness in extremities], [denies balance issues] Objective:: Physical exam General: Alert and oriented x3, no acute distress, pleasant and cooperative, [on room air] Lungs: Respirations even and unlabored, symmetrical chest expansion Eyes: PERRL Musculoskeletal: Flexion and extension of cervical spine somewhat guarded secondary to pain, deep tendon reflexes normal, strength in upper and lower extremities [5/5], normal gait noted Neurological: Speech clear, business intelligence analyst equal, no gross sensory deficit Assessment:: Degenerative disc disease lumbar spine with lumbar radiculopathy, spinal stenosis, neurogenic claudication Plan:: We will refer the patient to gastroenterology. She lives in [place] and would like to see someone there. She has been advised to hold any anti-inflammatories at this time secondary to report of elevated enzymes. The patient will continue a home stretching program. She would like to determine what is going on with her abdomen and see if this is contributing to her back pain. The patient will see GI and follow-up with us in 1 month. She is been advised to call the office if she has any concerns prior to her next appointment. Dr. Liu has reviewed this note and agrees with this plan of care. This note was dictated using voice recognition software and make contain errors or omissions.
--- NOTE | 2018-12-02 09:33 | P.CONS_ITS ---
[facility] Pain Management SOAP Note Subjective:: Patient is a pleasant 28-year-old white female who presents today for follow-up. Patient is having mid epigastric pain radiating to her right flank area. She says she has been having this pain for a couple of months. She also had some swelling to her abdomen and lower extremities. At last visit she was encouraged to follow-up with her primary care physician to discuss possible testing. Patient says that she did, indeed, follow-up with her primary care provider who did do testing that revealed elevated enzymes , according to the patient. Patient is still having midepigastric pain and says that it worsens with eating. Per patient, her PCP told her it is heartburn, take the medicine and deal with it . She says that the midepigastric pain is now causing her to have upper back pain. She would like to determine what is causing her midepigastric pain before addressing her back pain. Review of Systems General: No recent weight changes, no fever, no sleep disturbances Respiratory: No cough, no shortness of air, no recurring pulmonary infections Cardiovascular/peripheral vascular: No chest pain, no palpitations, no edema, no shortness of breath Gastrointestinal: No new onset incontinence, normal bowel movements reported Genitourinary: No new onset incontinence Musculoskeletal: Back pain Psychiatric: Normal mood/affect Neurological: [Denies weakness in extremities], [denies balance issues] Objective:: Physical exam General: Alert and oriented x3, no acute distress, pleasant and cooperative, [on room air] Lungs: Respirations even and unlabored, symmetrical chest expansion Eyes: PERRL Musculoskeletal: Flexion and extension of cervical spine somewhat guarded secondary to pain, deep tendon reflexes normal, strength in upper and lower extremities [5/5], normal gait noted Neurological: Speech clear, headstart teacher equal, no gross sensory deficit Assessment:: Degenerative disc disease lumbar spine with lumbar radiculopathy, spinal stenosis, neurogenic claudication Plan:: We will refer the patient to gastroenterology. She lives in [place] and would like to see someone there. She has been advised to hold any anti- inflammatories at this time secondary to report of elevated enzymes. The patient will continue a home stretching program. She would like to determine what is going on with her abdomen and see if this is contributing to her back pain. The patient will see GI and follow-up with us in 1 month. She is been advised to call the office if she has any concerns prior to her next appointment. Dr. Liu has reviewed this note and agrees with this plan of care. This note was dictated using voice recognition software and make contain errors or omissions.
== END ==
PROVIDERS: Visit Provider Clinical Nurse Specialist Family Health
DX: M51.16 Intervertebral disc disorders with radiculopathy, lumbar region (principal); M48.062 Spinal stenosis, lumbar region with neurogenic claudication
CPT/HCPCS: 99212

== ENCOUNTER → 2018-12-31 11:40 | Outpatient (POV) | payer BC, SELFPAY ==
--- NOTE | 2018-12-31 12:32 | P.CONS_ITS ---
[facility] Pain Management SOAP Note Subjective:: Patient is a very pleasant 28-year-old white female who presents today for follow-up. Patient was seen by gastroenterology and it was determined that she had gastritis. Patient states most of her pain today is over her left SI joint. She has avert a flex in place and she also has a neurostimulator. I believe it would be beneficial to do an SI joint injection to see if this is her main issue. Patient might need some kind of stability device placed in that area. She rates her pain today a 6 out of 10. ROS General: no recent weight change, no fever, no sleep disturbances Respiratory: no cough, no shortness of air, no recurring pulmonary infections Cardiovascular/Peripheral Vascular: No chest pain, No palpitations, no edema, no shortness of breath. Gastrointestinal: no incontinence, normal bowel movements reported Genitourinary: no incontinence Musculoskeletal: Left SI joint pain Psychiatric: normal mood/ affect Neurological: [denies weakness in extremities], [denies balance issues] Objective:: Physical Exam General: Alert and oriented x3, no acute distress, pleasant and cooperative, Lungs: Resps E/U, Symmetrical chest expansion, Eyes: PERRL Musculoskeletal: Flexion and extension of lumbar spine somewhat guarded secondary to pain, deep tendon reflexes normal, strength in upper and lower extremities [5/5], slightly antalgic gait noted, positive SI joint compression test positive Guy's test and positive Heather test on the left side Neurological: speech clear, media sales consultant equal, no gross sensory deficits Assessment:: Sacroiliitis Plan:: We will schedule a left SI joint injection for the patient. We will see if this is beneficial for her. I will follow-up with her after injection reassess her symptoms at that time. She is continuing her home stretching program. Dr. Liu has reviewed this note and agrees with this plan of care. This note was dictated using voice recognition software and may contain errors or omissions Pain Management Hx Components *Have you ever received a pneumonia vaccine?: No *Have you received a flu vaccine this season?: Yes - *Social History *Occupational Status:: other *Travel in the last 8 weeks: None
[2018-12-31 12:34] VITALS: BP 140/77; PULSE 61; RESP 18; O2SAT 99; BMI 32.0
== END ==
PROVIDERS: Visit Provider Clinical Nurse Specialist Family Health
DX: M46.1 Sacroiliitis, not elsewhere classified (principal)
CPT/HCPCS: 99212

== ENCOUNTER → 2019-02-17 08:23 | Outpatient (POV) | payer BC, SELFPAY ==
[2019-02-17 08:59] VITALS: BP 133/89; PULSE 76; RESP 18; O2SAT 98; BMI 31.8
--- NOTE | 2019-02-17 09:03 | HMH.PAINSOAP ---
[facility] Pain Management SOAP Note Subjective:: Patient is a pleasant 28-year-old white female who presents today for follow-up after left SI joint injection. Patient and I have discussed the corner lock procedure and we discussed using the SI joint injection as a diagnostic. While the patient was numb and in the office she had 100% relief of her symptoms however they returned after the anesthetic wore off. Patient has recently been diagnosed with SVT and is started digitoxin. Patient feels slightly sluggish however overall doing better she is recently lost 45 pounds and is continuing a home stretching program she rates her pain today 4 out of 10. Patient does have a positive Heather test, Alex's test, and joint compression test on the left side. ROS General: no recent weight change, no fever, no sleep disturbances Respiratory: no cough, no shortness of air, no recurring pulmonary infections Cardiovascular/Peripheral Vascular: No chest pain, No palpitations, no edema, no shortness of breath. Gastrointestinal: no incontinence, normal bowel movements reported Genitourinary: no incontinence Musculoskeletal: SI joint pain Psychiatric: normal mood/ affect, [denies depression], [denies anxiety] Neurological: [denies weakness in extremities], [denies balance issues] Objective:: Physical Exam General: Alert and oriented x3, no acute distress, pleasant and cooperative, [on room air] Lungs: Resps E/U, Symmetrical chest expansion, Eyes: PERRL Musculoskeletal: Flexion and extension of lumbar spine somewhat guarded secondary to pain, deep tendon reflexes normal, strength in upper and lower extremities [5/5], slightly antalgic gait noted Neurological: speech clear, furnace checker equal, no gross sensory deficits Assessment:: Sacroiliitis chronic Plan:: We will schedule a left-sided sacroiliac RFA for the patient to see if this is beneficial if it is not she may be a good candidate for corner lock procedure. She is not on any anticoagulation therapy. She is continuing her home stretching program I will follow-up with the patient after this and reassess her symptoms at the time. She is been instructed to call the office if she has any issues prior to her next appointment Dr. Liu has reviewed this note and agrees with this plan of care. This note was dictated using voice recognition software and may contain errors or omissions [facility] History I have reviewed the patient's past medical history: Yes Medical History: Reports:: Anxiety, Asthma, Depression, Gastroesophageal Reflux Disease(GERD) Denies:: Cancer, Diabetes Mellitus Type 1, Diabetes Mellitus Type 2, Internal Pacemaker, MRSA, Seizures *Have you ever received a pneumonia vaccine?: Yes *Have you received a flu vaccine this season?: Yes Other Medical History: Reports: Anemia, Other (obesity, chronic pain). Denies: Blood Transfusion Reaction Laterality Cases: Bilateral: Tonsillectomy Other Surgeries: Yes: Other (NEUROSTIMULATOR IMPLANTx2). No: Pacemaker Amputation: No Fractures: No - *Social History Smoking Status: Never smoker Tobacco Type: cigarettes # Packs/Day (cigarettes): 1 Alcohol Intake: never *Occupational Status:: other Housing: apartment Household Members: friend(s) *Travel in the last 8 weeks: None - Psychiatric History Pschychiatric History:: Reports:: Anxiety, Depression Family Hx:: Cancer
--- NOTE | 2019-02-17 09:07 | P.CONS_ITS ---
[facility] Pain Management SOAP Note Subjective:: Patient is a pleasant 28-year-old white female who presents today for follow-up after left SI joint injection. Patient and I have discussed the corner lock procedure and we discussed using the SI joint injection as a diagnostic. While the patient was numb and in the office she had 100% relief of her symptoms however they returned after the anesthetic wore off. Patient has recently been diagnosed with SVT and is started digitoxin. Patient feels slightly sluggish however overall doing better she is recently lost 45 pounds and is continuing a home stretching program she rates her pain today 4 out of 10. Patient does have a positive Heather test, Alex's test, and joint compression test on the left side. ROS General: no recent weight change, no fever, no sleep disturbances Respiratory: no cough, no shortness of air, no recurring pulmonary infections Cardiovascular/Peripheral Vascular: No chest pain, No palpitations, no edema, no shortness of breath. Gastrointestinal: no incontinence, normal bowel movements reported Genitourinary: no incontinence Musculoskeletal: SI joint pain Psychiatric: normal mood/ affect, [denies depression], [denies anxiety] Neurological: [denies weakness in extremities], [denies balance issues] Objective:: Physical Exam General: Alert and oriented x3, no acute distress, pleasant and cooperative, [on room air] Lungs: Resps E/U, Symmetrical chest expansion, Eyes: PERRL Musculoskeletal: Flexion and extension of lumbar spine somewhat guarded secondary to pain, deep tendon reflexes normal, strength in upper and lower extremities [5/5], slightly antalgic gait noted Neurological: speech clear, cap maker equal, no gross sensory deficits Assessment:: Sacroiliitis chronic Plan:: We will schedule a left-sided sacroiliac RFA for the patient to see if this is beneficial if it is not she may be a good candidate for corner lock procedure. She is not on any anticoagulation therapy. She is continuing her home stretching program I will follow-up with the patient after this and reassess her symptoms at the time. She is been instructed to call the office if she has any issues prior to her next appointment Dr. Liu has reviewed this note and agrees with this plan of care. This note was dictated using voice recognition software and may contain errors or omissions [facility] History I have reviewed the patient's past medical history: Yes Medical History: Reports:: Anxiety, Asthma, Depression, Gastroesophageal Reflux Disease(GERD) Denies:: Cancer, Diabetes Mellitus Type 1, Diabetes Mellitus Type 2, Internal Pacemaker, MRSA, Seizures *Have you ever received a pneumonia vaccine?: Yes *Have you received a flu vaccine this season?: Yes Other Medical History: Reports: Anemia, Other (obesity, chronic pain). Denies: Blood Transfusion Reaction Laterality Cases: Bilateral: Tonsillectomy Other Surgeries: Yes: Other (NEUROSTIMULATOR IMPLANTx2). No: Pacemaker Amputation: No Fractures: No - *Social History Smoking Status: Never smoker Tobacco Type: cigarettes # Packs/Day (cigarettes): 1 Alcohol Intake: never *Occupational Status:: other Housing: apartment Household Members: friend(s) *Travel in the last 8 weeks: None - Psychiatric History Pschychiatric History:: Reports:: Anxiety, Depression Family Hx:: Cancer
== END ==
PROVIDERS: PCP Physician Assistant Surgical; Visit Provider Clinical Nurse Specialist Family Health
DX: M46.1 Sacroiliitis, not elsewhere classified (principal)
CPT/HCPCS: 99212

== ENCOUNTER → 2019-03-31 08:43 | Outpatient (POV) | payer BC, SELFPAY ==
[2019-03-31 09:06] VITALS: BP 136/86; PULSE 74; RESP 18; O2SAT 98; BMI 33.8
--- NOTE | 2019-03-31 09:26 | P.CONS_ITS ---
[facility] Pain Management SOAP Note Subjective:: Is a pleasant patient is a pleasant 28-year-old white female who presents today for follow-up after left sided RFA of the SI joint. Patient did get some relief however her pain is coming back. She was able to walk when she was at [facility]. Patient rates her pain today 4 out of 10. She does have a positive Heather test, Guy's test and SI joint compression test on the left side. She is failed multiple SI joint injections for long-term relief. However short- term relief she does get. Patient and I have discussed the corner lock procedure she would like to move forward with this. She is not on any blood thinners. She is tried and failed physical therapy, anti-inflammatories and med ication along with injective therapy. ROS General: no recent weight change, no fever, no sleep disturbances Respiratory: no cough, no shortness of air, no recurring pulmonary infections Cardiovascular/Peripheral Vascular: No chest pain, No palpitations, no edema, no shortness of breath. Gastrointestinal: no new onset incontinence, normal bowel movements reported Genitourinary: no new onset incontinence Musculoskeletal: Left SI joint pain Psychiatric: normal mood/ affect Neurological: [denies new onset weakness in extremities], [denies new onset balance issues] Objective:: Physical Exam General: Alert and oriented x3, no acute distress, pleasant and cooperative, [on room air] Lungs: Resps E/U, Symmetrical chest expansion, Eyes: PERRL Musculoskeletal: Flexion and extension of lumbar spine somewhat guarded secondary to pain, deep tendon reflexes normal, strength in upper and lower extremities [5/5], slightly antalgic gait noted Neurological: speech clear, renderer equal, no gross sensory deficits Assessment:: Sacroiliitis, chronic Plan:: We will schedule her for percutaneous SI joint fusion on the left side. Patient's been instructed to call the office if she has any issues prior to her next appointment. I will follow-up with her after this reassess her symptoms at that time she is been instructed to call the office if she has any issues prior to her next appointment. Dr. Liu has reviewed this note and agrees with this plan of care. This note was dictated using voice recognition software and may contain errors or omissions [facility] History I have reviewed the patient's past medical history: Yes Medical History: Reports:: Anxiety, Arrhythmia, Asthma, Depression, Gastroesophageal Reflux Disease(GERD) Denies:: Cancer, Diabetes Mellitus Type 1, Diabetes Mellitus Type 2, Internal Pacemaker, MRSA, Seizures *Have you ever received a pneumonia vaccine?: Yes *Have you received a flu vaccine this season?: Yes Other Medical History: Reports: Anemia, Other (obesity, chronic pain). Denies: Blood Transfusion Reaction Laterality Cases: Bilateral: Tonsillectomy Other Surgeries: Yes: Other (NEUROSTIMULATOR IMPLANTx2). No: Pacemaker Amputation: No Fractures: No - *Social History Smoking Status: Never smoker Tobacco Type: cigarettes # Packs/Day (cigarettes): 1 Alcohol Intake: never *Occupational Status:: other Housing: apartment Household Members: friend(s) *Travel in the last 8 weeks: None - Psychiatric History Pschychiatric History:: Reports:: Anxiety, Depression Family Hx:: Cancer
== END ==
PROVIDERS: PCP Physician Assistant Surgical; Visit Provider Clinical Nurse Specialist Family Health
DX: Z09 Encounter for follow-up examination after completed treatment for conditions other than malignant neoplasm (principal); M46.1 Sacroiliitis, not elsewhere classified
CPT/HCPCS: 99212

== ENCOUNTER → 2019-05-26 11:33 | Outpatient (POV) | payer BC, SELFPAY ==
[2019-05-26 12:06] VITALS: BP 90/75; PULSE 76; RESP 18; O2SAT 98; BMI 32.9
--- NOTE | 2019-05-26 12:34 | P.CONS_ITS ---
[facility] Pain Management SOAP Note Subjective:: Patient is a pleasant 28-year-old white female who presents today for follow-up after her coronary lock procedure. Patient is doing extremely well patient states her SI pain is gone she rates her pain today 3 out of 10. Overall doing extremely well her stitches have been removed her incisions are well approximated no sign symptoms of infection. Patient and I discussed limitations. Patient and I discussed starting physical therapy back in 4 weeks. She is interested in pursuing that. She is getting continue to take it easy. I will see her back in 8 weeks for follow-up. ROS General: no recent weight change, no fever, no sleep disturbances Respiratory: no cough, no shortness of air, no recurring pulmonary infections Cardiovascular/Peripheral Vascular: No chest pain, No palpitations, no edema, no shortness of breath. Gastrointestinal: no new onset incontinence, normal bowel movements reported Genitourinary: no new onset incontinence Musculoskeletal: Back pain, leg pain at times Psychiatric: normal mood/ affect Neurological: [denies new onset weakness in extremities], [denies new onset balance issues] Objective:: Physical Exam General: Alert and oriented x3, no acute distress, pleasant and cooperative, [on room air] Lungs: Resps E/U, Symmetrical chest expansion, Eyes: PERRL Musculoskeletal: Flexion and extension of lumbar spine somewhat guarded secondary to pain, deep tendon reflexes normal, strength in upper and lower extremities [5/5], normal gait noted Neurological: speech clear, lapel padder blindstitch equal, no gross sensory deficits Assessment:: Chronic sacroiliitis Plan:: Patient is doing well at this time. In 4 weeks we will start her on physical therapy I will follow-up with her in 8 weeks reassess her symptoms at that time she is been instructed to call the office if she has any issues prior to her next appointment. Dr. Liu has reviewed this note and agrees with this plan of care. This note was dictated using voice recognition software and may contain errors or omissions [facility] History I have reviewed the patient's past medical history: Yes Medical History: Reports:: Anxiety, Arrhythmia, Asthma, Depression, Gastroesophageal Reflux Disease(GERD) Denies:: Cancer, Diabetes Mellitus Type 1, Diabetes Mellitus Type 2, Internal Pacemaker, MRSA, Seizures *Have you ever received a pneumonia vaccine?: Yes *Have you received a flu vaccine this season?: Yes Other Medical History: Reports: Anemia, Other (obesity, chronic pain). Denies: Blood Transfusion Reaction Laterality Cases: Bilateral: Tonsillectomy Other Surgeries: Yes: Other (NEUROSTIMULATOR IMPLANTx2). No: Pacemaker Amputation: No Fractures: No - *Social History Smoking Status: Never smoker Tobacco Type: cigarettes # Packs/Day (cigarettes): 1 Alcohol Intake: never Substance Use Type: denies use *Occupational Status:: other Housing: apartment Household Members: friend(s) *Travel in the last 8 weeks: None - Psychiatric History Pschychiatric History:: Reports:: Anxiety, Depression Family Hx:: Cancer
== END ==
PROVIDERS: PCP Physician Assistant Surgical; Visit Provider Clinical Nurse Specialist Family Health
DX: M46.1 Sacroiliitis, not elsewhere classified (principal)
CPT/HCPCS: 99212

== ENCOUNTER → 2019-07-21 09:26 | Outpatient (POV) | payer BC, SELFPAY ==
[2019-07-21 09:42] VITALS: BP 135/82; PULSE 80; RESP 18; O2SAT 98; BMI 32.9
--- NOTE | 2019-07-21 10:04 | HMH.PAINSOAP ---
[facility] Pain Management SOAP Note Subjective:: Patient is a 29-year-old white female who presents today for follow-up. Patient had a coronary lock procedure and was doing extremely well till last week. She pushed herself too hard in physical therapy. Patient is having quite a bit of left hip and low back pain radiating into her leg. She states that her foot is numb and tingling. She rates her pain today a 6 out of 10. ROS General: no recent weight change, no fever, no sleep disturbances Respiratory: no cough, no shortness of air, no recurring pulmonary infections Cardiovascular/Peripheral Vascular: No chest pain, No palpitations, no edema, no shortness of breath. Gastrointestinal: no new onset incontinence, normal bowel movements reported Genitourinary: no new onset incontinence Musculoskeletal: Back pain, leg pain Psychiatric: normal mood/ affect Neurological: [denies new onset weakness in extremities], [denies new onset balance issues] Objective:: Physical Exam General: Alert and oriented x3, no acute distress, pleasant and cooperative, [on room air] Lungs: Resps E/U, Symmetrical chest expansion, Eyes: PERRL Musculoskeletal: Flexion and extension of lumbar spine somewhat guarded secondary to pain, deep tendon reflexes normal, strength in upper and lower extremities [5/5], slightly antalgic gait noted Neurological: speech clear, bottom sander equal, no gross sensory deficits Assessment:: Status post corner lock procedure, sacroiliitis Plan:: We will give the patient 5 days worth of steroids and started on gabapentin 100 mg nightly. Patient is to call back in a week to tell us if she is doing any better. If she is doing better we will see her in 4 weeks. She is not to continue physical therapy until we have cleared her. She is been instructed to call the office if she has any issues prior to her next appointment. Dr. Liu has reviewed this note and agrees with this plan of care. This note was dictated using voice recognition software and may contain errors or omissions [facility] History I have reviewed the patient's past medical history: Yes Medical History: Reports:: Anxiety, Arrhythmia, Asthma, Depression, Gastroesophageal Reflux Disease(GERD) Denies:: Cancer, Diabetes Mellitus Type 1, Diabetes Mellitus Type 2, Internal Pacemaker, MRSA, Seizures *Have you ever received a pneumonia vaccine?: Yes *Have you received a flu vaccine this season?: Yes Other Medical History: Reports: Anemia, Other (obesity, chronic pain). Denies: Blood Transfusion Reaction Laterality Cases: Bilateral: Tonsillectomy Other Surgeries: Yes: Other (NEUROSTIMULATOR IMPLANTx2). No: Pacemaker Amputation: No Fractures: No - *Social History Smoking Status: Never smoker Tobacco Type: cigarettes # Packs/Day (cigarettes): 1 Alcohol Intake: never Substance Use Type: denies use *Occupational Status:: other Housing: apartment Household Members: friend(s) *Travel in the last 8 weeks: None - Psychiatric History Pschychiatric History:: Reports:: Anxiety, Depression Family Hx:: Cancer
== END ==
PROVIDERS: PCP Physician Assistant Surgical; Visit Provider Clinical Nurse Specialist Family Health
DX: M46.1 Sacroiliitis, not elsewhere classified (principal); Z98.1 Arthrodesis status
CPT/HCPCS: 99212

== ENCOUNTER → 2019-08-05 09:22 | Outpatient (POV) | payer BC, SELFPAY ==
[2019-08-05 09:46] VITALS: BP 154/83; PULSE 79; RESP 18; O2SAT 99; BMI 32.5
[2019-08-05 10:01] VITALS: BP 154/83; PULSE 79; RESP 18; O2SAT 98; BMI 32.5
--- NOTE | 2019-08-05 11:21 | P.CONS_ITS ---
[facility] Pain Management SOAP Note Subjective:: Patient is a pleasant 29-year-old white female who presents today for follow-up. Patient is started on gabapentin. She is having no side effects. Patient is not getting adequate pain relief with it. She still has numbness and tingling in her hands and rates it a 5 out of 10. ROS General: no recent weight change, no fever, no sleep disturbances Respiratory: no cough, no shortness of air, no recurring pulmonary infections Cardiovascular/Peripheral Vascular: No chest pain, No palpitations, no edema, no shortness of breath. Gastrointestinal: no new onset incontinence, normal bowel movements reported Genitourinary: no new onset incontinence Musculoskeletal: Back pain, numbness and tingling bilateral hands Psychiatric: normal mood/ affect, Neurological: [denies new onset weakness in extremities], [denies new onset balance issues] Objective:: Physical Exam General: Alert and oriented x3, no acute distress, pleasant and cooperative, [on room air] Lungs: Resps E/U, Symmetrical chest expansion, Eyes: PERRL Musculoskeletal: Flexion and extension of lumbar spine somewhat guarded secondary to pain, deep tendon reflexes normal, strength in upper and lower extremities [5/5], slightly antalgic gait noted Neurological: speech clear, queen's counsel equal, no gross sensory deficits Assessment:: Degenerative disc disease lumbar spine with lumbar radiculopathy, sacroiliitis, neuropathy Plan:: Start the patient on gabapentin 300 mg 1 p.o. 3 times daily we will see her in 1 month reassess her symptoms at that time she has been instructed to call the office if she has any issues prior to her next appointment. Dr. Liu has reviewed this note and agrees with this plan of care. This note was dictated using voice recognition software and may contain errors or omissions [facility] History I have reviewed the patient's past medical history: Yes Medical History: Reports:: Anxiety, Arrhythmia, Asthma, Depression, Gastroesophageal Reflux Disease(GERD) Denies:: Cancer, Diabetes Mellitus Type 1, Diabetes Mellitus Type 2, Internal Pacemaker, MRSA, Seizures *Have you ever received a pneumonia vaccine?: Yes *Have you received a flu vaccine this season?: Yes Other Medical History: Reports: Anemia, Other (obesity, chronic pain). Denies: Blood Transfusion Reaction Laterality Cases: Bilateral: Tonsillectomy Other Surgeries: Yes: Other (NEUROSTIMULATOR IMPLANTx2). No: Pacemaker Amputation: No Fractures: No - *Social History Smoking Status: Never smoker Tobacco Type: cigarettes # Packs/Day (cigarettes): 1 Alcohol Intake: never Substance Use Type: denies use *Occupational Status:: other Housing: apartment Household Members: friend(s) *Travel in the last 8 weeks: None - Psychiatric History Pschychiatric History:: Reports:: Anxiety, Depression Family Hx:: Cancer
== END ==
PROVIDERS: Visit Provider Clinical Nurse Specialist Family Health
DX: M51.16 Intervertebral disc disorders with radiculopathy, lumbar region (principal); M46.1 Sacroiliitis, not elsewhere classified; G62.9 Polyneuropathy, unspecified
CPT/HCPCS: 99212

== ENCOUNTER → 2019-10-16 09:54 | Outpatient (POV) | payer BC, SELFPAY ==
[2019-10-16 12:11] VITALS: BP 117/80; PULSE 75; RESP 18; TEMP 36.8; O2SAT 99; BMI 31.1
--- NOTE | 2019-10-16 13:27 | HMH.PAINSOAP ---
[facility] Pain Management SOAP Note Subjective:: Patient is a 29-year-old white female who presents today for follow-up after forelock procedure. Patient underwent a clinical procedure May 09, 2019. Patient says that she initially got relief to her left low back area and left hip. Following the procedure. She does say that she has had approximately 1 week of pain. She says she tried physical therapy that did not give her any relief. She is using Voltaren gel at this time. Patient says that she does not not feel like she got any relief with Voltaren gel. She would like to discuss possible left SI joint injection to get some relief. She feels that she may have caused some increased inflammation to the area. She does continue with a home stretching program and ice and heat therapies. She is also taking [id number] ibuprofen. Review of Systems General: No recent weight changes, no fever, no sleep disturbances Respiratory: No cough, no shortness of air, no recurring pulmonary infections Cardiovascular/peripheral vascular: No chest pain, no palpitations, no edema, no shortness of breath Gastrointestinal: No new onset incontinence, normal bowel movements reported Genitourinary: No new onset incontinence Musculoskeletal: Low back pain, left hip pain Psychiatric: Normal mood/affect Neurological: [Denies weakness in extremities], [denies balance issues] Objective:: Physical exam General: Alert and oriented x3, no acute distress, pleasant and cooperative, [on room air] Lungs: Respirations even and unlabored, symmetrical chest expansion Eyes: PERRL Musculoskeletal: Flexion and extension of lumbar spine somewhat guarded secondary to pain, deep tendon reflexes normal, strength in upper and lower extremities [5/5], abnormal gait noted, positive Woodbridge's test, positive Alex's test, positive distraction test Neurological: Speech clear, echocardiograph technician equal, no gross sensory deficit Assessment:: Low back pain, left sacroiliitis, left hip pain Plan:: Patient will be scheduled for a left SI joint injection. She is having some increased pain to her low back and left hip. We will also order her Zanaflex 4 mg 1 tablet p.o. twice daily for 7 days. We will see her back in the clinic after her injection to reassess her symptoms. The patient and I specifically discussed risk factors for COVID19. These risks include, but are not limited to age greater than 60, heart or lung disease, diabetes, immunosuppression, and travel. We also discussed NSAIDs may worsen COVID19 infection or symptoms. Patient should not use NSAIDs to treat COVID19 signs or symptoms. Patient was also informed that any type of corticosteroid of any form (oral or injection) will decrease the patient's immune system response and may increase the likelihood of COVID19 infection and symptoms. Given the risks and benefits of the injection, the patient would like to proceed. She has been instructed to contact clinic if she has any concerns before her next appointment. Dr. Liu has reviewed this note and agrees with this plan of care. This note was dictated using voice recognition software and make contain errors or omissions. [facility] History Medical History: Reports:: Anxiety, Arrhythmia, Asthma, Depression, Gastroesophageal Reflux Disease(GERD) Denies:: Cancer, Diabetes Mellitus Type 1, Diabetes Mellitus Type 2, Internal Pacemaker, MRSA, Seizures *Have you ever received a pneumonia vaccine?: Yes *Have you received a flu vaccine this season?: Yes Other Medical History: Reports: Anemia, Other (obesity, chronic pain). Denies: Blood Transfusion Reaction Laterality Cases: Bilateral: Tonsillectomy Other Surgeries: Yes: Other (NEUROSTIMULATOR IMPLANTx2). No: Pacemaker Amputation: No Fractures: No - *Social History Smoking Status: Never smoker Tobacco Type: cigarettes # Packs/Day (cigarettes): 1 Alcohol Intake: never Substance Use Type: denies use *Occupational Status:: other [place]
== END ==
PROVIDERS: PCP Physician Assistant Surgical; Visit Provider Clinical Nurse Specialist Family Health
DX: M54.5 Low back pain (principal); M46.1 Sacroiliitis, not elsewhere classified; M25.552 Pain in left hip
CPT/HCPCS: 99212

== ENCOUNTER 2019-10-31 10:55 | Day surgery (SDC) | payer BC, SELFPAY ==
[2019-10-31 11:16] VITALS: BP 105/70; PULSE 70; RESP 18; TEMP 36.7; O2SAT 99; BMI 32.0
[2019-10-31 11:45] VITALS: BP 145/78; PULSE 85; RESP 18
[2019-10-31 11:46] VITALS: BP 142/89; PULSE 88; RESP 18; O2SAT 98
--- NOTE | 2019-10-31 11:47 | P.PCN_ITS ---
- Procedure Date: 10/31/19 Time: 11:48 Anesthesiologist:: Stan Liu MD Complications:: None Pre-procedure Diagnosis:: Sacroiliitis Post-procedure Diagnosis:: Same Indications for Procedure:: This patient is a pleasant 29-year-old white female who we have been treating for sacroiliitis. She did have SI joint stabilization with Cornerloc left side. She is still having some residual pain in that area. We will do a left SI joint injection to see if this is a source of her pain and see if it helps. Procedure Details:: Left SI joint injection under fluoroscopy Informed consent was obtained and the risks and benefits of the procedure was explained to the patient. Patient was taken to the procedure room. Patient was placed prone on the procedure table. The left hip was prepped using ChloraPrep. The skin and subcutaneous tissues were anesthetized using lidocaine. I placed a 22-gauge spinal needle into the inferior aspect of the left SI joint. Needle placement was confirmed with dye. After this we injected 5 mL bupivacaine 0.25% and Depo-Medrol 40 mg into the left SI joint. The patient tolerated the procedure well with no complication. Plan and Disposition:: We will follow-up with her in 2 weeks. Will reevaluate symptoms at that time. If she does not get significant relief with this injection she may be a c andidate for bilateral lumbar medial branch block/facet joint injections of L4- L5 and L5-S1 under fluoroscopy.
[2019-10-31 11:50] VITALS: BP 120/70; PULSE 62; RESP 18; O2SAT 99
== END 2019-10-31 11:50 | disposition home or self-care (01) ==
LOC: SC.PAINP 10:56
PROVIDERS: PCP Physician Assistant Surgical; Visit Provider Anesthesiology
DX: M46.1 Sacroiliitis, not elsewhere classified (principal); Z88.5 Allergy status to narcotic agent; Z88.0 Allergy status to penicillin; Z88.6 Allergy status to analgesic agent; Z88.1 Allergy status to other antibiotic agents; Z91.040 Latex allergy status; Z79.899 Other long term (current) drug therapy
CPT/HCPCS: 27096; G0260; J1040; Q9966

== ENCOUNTER → 2019-11-24 09:50 | Outpatient (POV) | payer BC, SELFPAY ==
[2019-11-24 10:17] VITALS: BP 128/85; PULSE 82; RESP 18; O2SAT 99; BMI 32.5
--- NOTE | 2019-11-24 10:37 | P.CONS_ITS ---
[facility] Pain Management SOAP Note Subjective:: Patient is a pleasant 29-year-old white female who presents today for follow-up after left SI joint injection. Patient did not get any relief from that she rates her pain a 4 out of 10. She states her pain is getting higher on the left side. Patient does have a positive facet loading on the lumbar spine on the left side. She is not on any anticoagulation therapy. ROS General: no recent weight change, no fever, no sleep disturbances Respiratory: no cough, no shortness of air, no recurring pulmonary infections Cardiovascular/Peripheral Vascular: No chest pain, No palpitations, no edema, no shortness of breath. Gastrointestinal: no new onset incontinence, normal bowel movements reported Genitourinary: no new onset incontinence Musculoskeletal: Back pain Psychiatric: normal mood/ affect Neurological: [denies new onset weakness in extremities], [denies new onset balance issues] Objective:: Physical Exam General: Alert and oriented x3, no acute distress, pleasant and cooperative, [on room air] Lungs: Resps E/U, Symmetrical chest expansion, Eyes: PERRL Musculoskeletal: Flexion and extension of lumbar spine somewhat guarded secondary to pain, deep tendon reflexes normal, strength in upper and lower extremities [5/5], slightly antalgic gait noted Neurological: speech clear, wig dresser equal, no gross sensory deficits Assessment:: Facet arthropathy, degenerative disc disease lumbar spine lumbar radiculopathy, sacroiliitis Plan:: We will schedule the patient for an L4-L5 L5-S1 left-sided medial branch block. Patient may be a neurotomy candidate. I will follow-up with her after this re assess her symptoms at that time she has been instructed to call the office if she has any issues prior to her next appointment. Dr. Liu has reviewed this note and agrees with this plan of care. This note was dictated using voice recognition software and may contain errors or omissions [facility] History I have reviewed the patient's past medical history: Yes Medical History: Reports:: Anxiety, Arrhythmia (SVT), Asthma, Depression, Gastroesophageal Reflux Disease(GERD) Denies:: Cancer, Diabetes Mellitus Type 1, Diabetes Mellitus Type 2, Internal Pacemaker, MRSA, Seizures *Have you ever received a pneumonia vaccine?: Yes *Have you received a flu vaccine this season?: Yes Other Medical History: Reports: Anemia, Other (obesity, chronic pain). Denies: Blood Transfusion Reaction Laterality Cases: Bilateral: Tonsillectomy Other Surgeries: Yes: Other (NEUROSTIMULATOR IMPLANTx2). No: Pacemaker Amputation: No Fractures: No - *Social History Smoking Status: Never smoker Tobacco Type: cigarettes # Packs/Day (cigarettes): 1 Alcohol Intake: never Substance Use Type: denies use *Occupational Status:: other Housing: apartment Household Members: friend(s) *Travel in the last 8 weeks: None - Psychiatric History Pschychiatric History:: Reports:: Anxiety, Depression Family Hx:: Cancer
== END ==
PROVIDERS: Visit Provider Clinical Nurse Specialist Family Health
DX: M51.16 Intervertebral disc disorders with radiculopathy, lumbar region (principal); M46.1 Sacroiliitis, not elsewhere classified; M47.9 Spondylosis, unspecified
CPT/HCPCS: 99212

== ENCOUNTER 2019-12-05 10:04 | Day surgery (SDC) | payer BC, SELFPAY ==
[2019-12-05 10:14] VITALS: BP 122/70; PULSE 68; RESP 18; TEMP 36.2; O2SAT 100; BMI 30.5
[2019-12-05 11:24] VITALS: BP 138/91; PULSE 85
--- NOTE | 2019-12-05 11:25 | [facility].PMPROC ---
- Procedure Date: 12/05/19 Time: 11:28 Anesthesiologist:: Stan Liu MD Complications:: None Pre-procedure Diagnosis:: Degenerative disc disease of lumbar spine with lumbar spondylosis and increasing left-sided low back pain and lumbar facet arthropathy Post-procedure Diagnosis:: Same Indications for Procedure:: This patient is a pleasant 29-year-old white female who we are treating for low back pain with lumbar spondylosis and low back pain with increased lumbar facet arthropathy especially on the left side. We will do a left sided facet joint injection/medial branch blocks of L4-5 and L5-S1 today to help her with her pain symptoms. She has increased pain with extension and twisting. Procedure Details:: Lumbar medial branch block Informed consent was obtained and the risks and benefits of the procedure was explained to the patient. The back was prepped using ChloraPrep. The skin and subcutaneous tissues were anesthetized using lidocaine. I placed 22-gauge spinal needles into the facet joint/medial branches of L4-L5 and L5-S1 bilaterally. Needle placement was confirmed with dye. After this we injected 3 mL bupivacaine 0.25% and Depo-Medrol 20 mg into each facet joint/medial branch of L4-L5 and L5-S1 on the left side. We used a total of 40 mg Depo-Medrol for both levels on the left side. The patient tolerated the procedure well with no complications. Plan and Disposition:: We will follow-up with her in 2 weeks. Will reevaluate symptoms at that time. We will plan on lumbar RFA at that time if needed.
[2019-12-05 11:26] VITALS: BP 140/87; PULSE 87; RESP 18; O2SAT 99
[2019-12-05 11:29] VITALS: BP 126/68; PULSE 56; RESP 20; O2SAT 100
== END 2019-12-05 11:33 | disposition home or self-care (01) ==
LOC: SC.PAINP 10:07
PROVIDERS: Visit Provider Anesthesiology
DX: M51.36 Other intervertebral disc degeneration, lumbar region (principal); M47.816 Spondylosis without myelopathy or radiculopathy, lumbar region; M12.88 Other specific arthropathies, not elsewhere classified, other specified site
CPT/HCPCS: 64493; 64494; J1040; Q9966